=== PATIENT | female | born 2000 | race Two or more races ===

== ENCOUNTER 2023-03-26 23:06 | Emergency (ER) | payer MEDICAID ==
[~2023-03-26] VITALS: Ht 157.5 cm; Wt 58.0 kg
[2023-03-26] MEDS ORDERED: PNV1TABL54 PO (23:21)
[2023-03-26] MEDS ORDERED: ACETAMINOPHEN 325 MG TABLET PO ONE (23:45)
[2023-03-27] MEDS ORDERED: AMOX250C4 PO (00:22)
[2023-03-27 00:37] VITALS: BP 119/63; PULSE 84; RESP 16; TEMP 97.9
== END 2023-03-27 00:48 | disposition home or self-care (01) ==
LOC: EMS 23:09
DX: K02.9 Dental caries, unspecified (principal); Z3A.19 19 weeks gestation of pregnancy
CPT/HCPCS: 99283